=== PATIENT | female | born 1935 | race Caucasian/White ===

== ENCOUNTER → 2016-03-07 | Outpatient (CLI) | payer OTHER, BC ==
[2016-03-07 09:39] LABS: POTASSIUM 4.2 meq/L (3.8-5.2); SODIUM 136 meq/L (135-145)
[2016-03-07 09:40] LABS: BLOOD UREA NITROGEN 23 mg/dL (7-22); CALCIUM 9.2 mg/dL (8.7-10.7); CHLORIDE 100 meq/L (98-112); GLUCOSE 82 mg/dL (78-110)
== END ==
LOC: LAB 08:38
PROVIDERS: ATTEND Internal Medicine
DX: E87.1 Hypo-osmolality and hyponatremia (principal); K21.0 Gastro-esophageal reflux disease with esophagitis; N76.0 Acute vaginitis
CPT/HCPCS: 36415; 80048; 99214; G0463

== ENCOUNTER → 2016-03-08 | Outpatient (CLI) | payer OTHER, BC | LOC: MMPC 11:11 | DX: R05 Cough (principal); E27.8 Other specified disorders of adrenal gland; D72.819 Decreased white blood cell count, unspecified; E03.9 Hypothyroidism, unspecified; K21.9 Gastro-esophageal reflux disease without esophagitis; N39.0 Urinary tract infection, site not specified; E78.5 Hyperlipidemia, unspecified; E87.1 Hypo-osmolality and hyponatremia | CPT/HCPCS: 99213; G0463 ==

== ENCOUNTER → 2016-03-09 | Outpatient (CLI) | payer OTHER, BC ==
[2016-03-09 08:34] LABS: BASOPHILS # (AUTO) 0.02 10*3/UL; BASOPHILS % (AUTO) 0.6 % (0-1); EOSINOPHILS % (AUTO) 3.9 % (0-8); HEMATOCRIT 35.8 % (37.0-47.0); HEMOGLOBIN 12.3 g/dL (12.0-16.0); IMM GRAN % (AUTO) 0 % (0-5); IMM GRAN# (AUTO) 0 10*3/UL; LYMPHOCYTES # (AUTO) 0.92 10*3/uL; LYMPHOCYTES % (AUTO) 27.7 % (10-50); MEAN CORPUSCULAR HEMOGLOBIN 31.9 PG (27-31); MEAN CORPUSCULAR HGB CONC 34.4 g/dL (33-37); MEAN PLATELET VOLUME 9.4 FL (7.4-12.2); NEUTROPHILS # (AUTO) 1.95 10*3/UL; NEUTROPHILS % (AUTO) 58.8 % (50-80); RDW COEFFICIENT OF VARIATION 12.9 % (11.5-14.5); RED BLOOD COUNT 3.86 10^6/uL (4.20-5.40); WHITE BLOOD COUNT 3.32 10^3/uL (4.8-10.8)
[2016-03-09 09:18] LABS: PLATELET MORPHOLOGY COMMENT NORMAL MORPHOLOGY (NORM)
== END ==
LOC: MOB LAB 07:58
DX: E27.49 Other adrenocortical insufficiency (principal); D72.819 Decreased white blood cell count, unspecified
CPT/HCPCS: 36415; 82024; 82533; 85025

== ENCOUNTER → 2016-06-14 | Outpatient (CLI) | payer OTHER, BC ==
[2016-06-14 15:37] LABS: BILIRUBIN,URINE NEGATIVE (NEG); COLOR,URINE YELLOW; GLUCOSE, URINE (UA) NEGATIVE (NEG); NITRATE,URINE NEGATIVE (NEG); OCCULT BLOOD,URINE NEGATIVE (NEG); PROTEIN,URINE NEGATIVE (NEG); UROBILINOGEN,URINE 0.2 mg/dL (0.2)
[2016-06-14 15:39] LABS: CHOL/HDL RATIO 2.85 RATIO (0-4.0); LDL CHOLESTEROL,CALCULATED 95.8 mg/dL
[2016-06-14 15:39] LABS: CALCIUM 9.9 mg/dL (8.7-10.7); SERUM ALBUMIN 4.2 g/dL (3.5-4.8)
[2016-06-14 15:46] LABS: CLARITY,URINE CLEAR (CLEAR)
[2016-06-14 15:47] LABS: BACTERIA,URINE RARE; SQUAMOUS EPITHELIAL CELL,UR RARE; URINE SAMPLE TYPE CLEAN CATCH URINE
== END ==
LOC: MOB LAB 13:44
DX: E03.9 Hypothyroidism, unspecified (principal); E27.1 Primary adrenocortical insufficiency; E78.5 Hyperlipidemia, unspecified; E55.9 Vitamin D deficiency, unspecified; K21.9 Gastro-esophageal reflux disease without esophagitis; E87.1 Hypo-osmolality and hyponatremia; M81.0 Age-related osteoporosis without current pathological fracture; D72.819 Decreased white blood cell count, unspecified; N39.0 Urinary tract infection, site not specified
CPT/HCPCS: 36415; 80053; 80061; 81001; 82306; 84443; 99213; G0463

== ENCOUNTER → 2016-08-15 | Outpatient (CLI) | payer OTHER, BC ==
[2016-08-15 11:35] LABS: BILIRUBIN,URINE NEGATIVE (NEG); CLARITY,URINE CLEAR (CLEAR); COLOR,URINE YELLOW; GLUCOSE, URINE (UA) NEGATIVE (NEG); NITRATE,URINE NEGATIVE (NEG); OCCULT BLOOD,URINE NEGATIVE (NEG); PROTEIN,URINE NEGATIVE (NEG); UROBILINOGEN,URINE 0.2 mg/dL (0.2)
[2016-08-15 11:42] LABS: URINE SAMPLE TYPE CLEAN CATCH URINE
[2016-08-15 11:43] LABS: BACTERIA,URINE FEW; RBC,URINE 0-3 /hpf; SQUAMOUS EPITHELIAL CELL,UR RARE
== END ==
LOC: MOB LAB 09:37
DX: N39.0 Urinary tract infection, site not specified (principal); R82.99 Other abnormal findings in urine; D72.819 Decreased white blood cell count, unspecified; R53.83 Other fatigue; E27.1 Primary adrenocortical insufficiency; K21.9 Gastro-esophageal reflux disease without esophagitis; R14.0 Abdominal distension (gaseous); I95.9 Hypotension, unspecified; E03.9 Hypothyroidism, unspecified; M81.0 Age-related osteoporosis without current pathological fracture
CPT/HCPCS: 81001; 87077; 87088; 87186